=== PATIENT | female | born 1945 | race Caucasian/White ===

== ENCOUNTER 2016-11-07 19:45 | Emergency (ER) | payer OTHER ==
[2016-11-07 19:51] VITALS: BMI 29.6
[2016-11-07] MEDS ORDERED: ACETAMINOPHEN 325 MG TABLET (FP) PO ONE (20:13)
--- NOTE | 2016-11-07 21:05 | PDOC ---
History of Present Illness - General History Source: Patient, Family () Exam Limitations: No Limitations - History of Present Illness Initial Comments: 11/07/16 21:42 The patient is a 71 year old female presenting with her , with a significant past medical history of HTN and thyroid disease, who presents to the emergency department with cough, fever, chills and runny nose since last night. She reports that her cough is dry in nature. She also reports that her fever is subjective. She notes that her daughter has also been sick. She denies any recent travel. She states that she has been taking cough syrup (Dyslem) but denies taking anything else for her symptoms. She denies receiving the flu shot this year. The patient denies chest pain, shortness of breath, headache and dizziness. Denies nausea, vomit, diarrhea and constipation. Denies dysuria, frequency, urgency and hematuria. Allergies: None Past surgical history: Cholecystectomy Social history: No alcohol, tobacco or drug use reported <Jeremias Manning - Last Filed: 11/07/16 21:46> <Kim Anderson - Last Filed: 11/08/16 00:56> - General Chief Complaint: Respiratory Stated Complaint: CHILLS, COUGH Time Seen by Provider: 11/07/16 20:04 Past History <Jeremias Manning - Last Filed: 11/07/16 21:46> - Past Medical History HTN: Yes Suicide Attempt (Hx): No Thyroid Disease: Yes - Surgical History Cholecystectomy: Yes - Immunization History Immunization Up to Date: Yes - Psycho/Social/Smoking Cessation Hx Anxiety: No Suicidal Ideation: No Smoking Status: No Smoking History: Never smoked Number of Cigarettes Smoked Daily: 0 Hx Alcohol Use: No Drug/Substance Use Hx: No Substance Use Type: None <Kim Anderson - Last Filed: 11/08/16 00:56> - Past Medical History Allergies/Adverse Reactions: Allergies Allergy/AdvReac Type Severity Reaction Status Date / Time No Known Allergies Allergy Verified 11/07/16 19:48 Home Medications: Ambulatory Orders Levothyroxine [Synthroid] 75 mcg PO DAILY 10/24/11 Indomethacin 50 mg PO TID 04/24/15 Metoprolol Tartrate 25 mg PO DAILY 04/24/15 Ibuprofen [Motrin -] 800 mg PO TID #30 tablet 04/25/15 Methocarbamol [Robaxin -] 1,000 mg PO TID #21 tablet 04/25/15 Hydrocodone Bit/Homatrop Me-Br [Hydrocodone-Homatropine Syrup] 5 ml PO QID PRN # 60 ml MDD 20 ml 11/07/16 Review of Systems - Review of Systems Able to Perform ROS?: Yes Comments:: 11/07/16 21:43 GENERAL/CONSTITUTIONAL: +chills and fever. No weakness. HEAD, EYES, EARS, NOSE AND THROAT: +Runny nose. No change in vision. No ear pain or discharge. No sore throat. CARDIOVASCULAR: No chest pain or shortness of breath RESPIRATORY: +Cough. No wheezing, or hemoptysis. GASTROINTESTINAL: No nausea, vomiting, diarrhea or constipation. GENITOURINARY: No dysuria, frequency, or change in urination. MUSCULOSKELETAL: No joint or muscle swelling or pain. No neck or back pain. SKIN: No rash NEUROLOGIC: No headache, vertigo, loss of consciousness, or change in strength/ sensation. ENDOCRINE: No increased thirst. No abnormal weight change HEMATOLOGIC/LYMPHATIC: No anemia, easy bleeding, or history of blood clots. ALLERGIC/IMMUNOLOGIC: No hives or skin allergy. <Jeremias Manning - Last Filed: 11/07/16 21:46> *Physical Exam - Vital Signs Last Vital Signs Temp Pulse Resp BP Pulse Ox 102 F H 93 H 18 129/89 100 11/07/16 19:45 11/07/16 19:45 11/07/16 19:45 11/07/16 19:45 11/07/16 19:45 - Physical Exam Comments: 11/07/16 21:43 GENERAL: Awake, alert, and fully oriented, in no acute distress HEAD: No signs of trauma, normocephalic, atraumatic EYES: PERRLA, EOMI, sclera anicteric, Slightly erythematous conjunctiva ENT: Auricles normal inspection, hearing grossly normal, nares patent, Oropharynx slightly erythematous without exudates. Moist mucosa NECK: Normal ROM, supple, no lymphadenopathy, JVD, or masses LUNGS: No distress, speaks full sentences, clear to auscultation bilaterally HEART: Regular rate and rhythm, normal S1 and S2, no murmurs, rubs or gallops, peripheral pulses normal and equal bilaterally. ABDOMEN: Soft, nontender, normoactive bowel sounds. No guarding, no rebound. No masses EXTREMITIES: Normal inspection, Normal range of motion, no edema. No clubbing or cyanosis. NEUROLOGICAL: Cranial nerves II through XII grossly intact. Normal speech, normal gait, no focal sensorimotor deficits SKIN: Warm, Dry, normal turgor, no rashes or lesions noted. <Jeremias Manning - Last Filed: 11/07/16 21:46> - Vital Signs Last Vital Signs Temp Pulse Resp BP Pulse Ox 102 F H 93 H 18 129/89 100 11/07/16 19:45 11/07/16 19:45 11/07/16 19:45 11/07/16 19:45 11/07/16 19:45 <Kim Anderson - Last Filed: 11/08/16 00:56> ED Treatment Course - Medications Given in the ED: ED Medications Discontinued Medications Generic Name Dose Route Start Last Admin Trade Name Freq PRN Reason Stop Dose Admin Acetaminophen 650 mg 11/07/16 20:13 11/07/16 20:10 Tylenol - PO 11/07/16 20:14 650 mg NOW ONE Administration <Jeremias Manning - Last Filed: 11/07/16 21:46> - Medications Given in the ED: ED Medications Discontinued Medications Generic Name Dose Route Start Last Admin Trade Name Freq PRN Reason Stop Dose Admin Acetaminophen 650 mg 11/07/16 20:13 11/07/16 20:10 Tylenol - PO 11/07/16 20:14 650 mg NOW ONE Administration <Kim Anderson - Last Filed: 11/08/16 00:56> Progress Note - Progress Note Progress Note: Documentation has been prepared under my direction and personally reviewed by me in its entirety. I attest that this documented accurately reflects all work, treatment, procedures and medical decision making performed by me. <Kim Anderson - Last Filed: 11/08/16 00:56> Medical Decision Making - Medical Decision Making As noted above, this 71-year-old woman with a history hypertension/ hypothyroidism presents with a few day history of nonproductive cough/sore throat/nasal congestion. No myalgias/malaise/gastrointestinal symptoms. Patient's daughter had similar symptoms 2 days ago. Patient has no history of asthma/COPD. She is a nonsmoker. She did not have influenza immunization this year. Exam as noted No evidence of acute bacterial infection at this time; clinical presentation most consistent with acute viral bronchitis. Patient will be advised to rest and drink plenty of fluids; she should make sure that the atmosphere within her home is well hydrated. Since she has been having paroxysmal coughing at night, prescription for hydrocodone/homatropine suspension, 5 mL up to 3 times a day as needed for severe cough will be sent to her pharmacy. She should return to the ER if she has worsening cough/wheezing/ shortness of breath/high fever. <Kim Anderson - Last Filed: 11/08/16 00:56> *DC/Admit/Observation/Transfer - Attestations Scribe Attestion: 11/07/16 21:44 Documentation prepared by Jeremias Manning, acting as medical oncology physician for Kim Anderson MD <Jeremias Manning - Last Filed: 11/07/16 21:46> <Kim Anderson - Last Filed: 11/08/16 00:56> Diagnosis at time of Disposition: Acute bronchitis Qualifiers: Bronchitis organism: unspecified organism Qualified Code(s): J20.9 - Acute bronchitis, unspecified - Discharge Dispostion Disposition: HOME Condition at time of disposition: Stable - Prescriptions Prescriptions: Hydrocodone Bit/Homatrop Me-Br [Hydrocodone-Homatropine Syrup] 5 ml PO QID PRN # 60 ml MDD 20 ml PRN Reason: Cough - Referrals Referrals: Dwayne Avelar [Primary Care Provider] - - Patient Instructions Printed Discharge Instructions: DI for Acute Bronchitis Additional Instructions: rest, drink plenty of fluids motrin/tylenol as needed for fever use vaporizer in room Delsym for mild cough Hydrocodone/homatropine 1 teaspoon up to 4 Xday for severe cough return or see your doctor if you have severe cough/shortness of breath/high fever
[2016-11-07] MEDS ORDERED: DEXTROMETHORPHAN/PROMETHAZINE 15 MG/6.25 MG/5 ML SYRUP PO ONE (21:46)
[2016-11-07 22:09] VITALS: BP 135/58; PULSE 83; TEMP 99.5
== END 2016-11-07 22:16 | disposition home or self-care (01) ==
LOC: FER 19:45
DX: J20.9 Acute bronchitis, unspecified (principal); I10 Essential (primary) hypertension; E03.9 Hypothyroidism, unspecified
CPT/HCPCS: 99282-25

== ENCOUNTER 2018-08-09 21:04 | Emergency (ER) | payer OTHER ==
--- NOTE | 2018-08-09 21:07 | PDOC ---
History of Present Illness - General Chief Complaint: Chest Pain Stated Complaint: WEAKNESS/PAIN Time Seen by Provider: 08/09/18 21:06 - History of Present Illness Initial Comments: 08/09/18 21:52 This 72-year-old woman with a history of HTN, mild HLD (diet controlled), hypothyroidism presents with a one-day history of intermittent chest pain. Patient states that she first felt left-sided chest pain last night , while lying on her left side. Patient rolled onto her right side with some relief. Today, she had recurrence of chest pain this afternoon, now mid substernal. Patient notes that this discomfort began after eating a large dinner and having an emotional discussion with her family. She notes mild nausea intermittent the last few hours. No shortness of breath/diaphoresis/radiation of pain. She denies trauma, however states that she has been vacuuming frequently in the last few days. No previous history of chest pain; no significant pain or shortness of breath with exertion. Patient states that she has been feeling fatigued/week all day today. No recent acute febrile illness Patient has recent right knee pain for which she received intra-articular steroid; no history of edema or other pain in the lower extremities Risk factors: Positive for hypertension/family history(paternal) Nonsmoker Medications as noted below Past History - Past Medical History Allergies/Adverse Reactions: Allergies Allergy/AdvReac Type Severity Reaction Status Date / Time No Known Allergies Allergy Verified 11/07/16 19:48 Home Medications: Ambulatory Orders Levothyroxine [Synthroid] 75 mcg PO DAILY 10/24/11 Metoprolol Tartrate 25 mg PO DAILY 04/24/15 Lisinopril 5 mg PO DAILY 08/09/18 HTN: Yes Thyroid Disease: Yes - Surgical History Cholecystectomy: Yes - Immunization History Immunization Up to Date: Yes - Suicide/Smoking/Psychosocial Hx Smoking Status: No Smoking History: Never smoked Number of Cigarettes Smoked Daily: 0 Hx Alcohol Use: No Drug/Substance Use Hx: No Substance Use Type: None Review of Systems - Review of Systems Able to Perform ROS?: Yes Comments:: 12 point review of systems is negative except for what is noted in the history of present illness *Physical Exam - Vital Signs Last Vital Signs Temp Pulse Resp BP Pulse Ox 98.8 F 101 H 16 151/77 98 08/09/18 21:10 08/09/18 21:10 08/09/18 21:10 08/09/18 21:10 08/09/18 21:10 - Physical Exam Comments: GENERAL: Adult female, alert and oriented 3, in no acute distress HEAD: Normal with no signs of trauma. EYES: PERRLA, EOMI, sclera anicteric, conjunctiva clear. ENT: Ears normal, nares patent, oropharynx clear without exudates. Moist mucous membranes. NECK: Normal range of motion, supple without lymphadenopathy, JVD, or masses. LUNGS: Breath sounds equal, clear to auscultation bilaterally. No wheezes, and no crackles. CHEST WALL: Mild tenderness to palpation right parasternal area ribs 2 through 4; no crepitus or step offs palpated HEART:Regular rate and rhythm, normal S1 and S2 without murmur, rub or gallop. ABDOMEN:.normal bowel sounds No guarding,tenderness or rebound.No masses No distention. EXTREMITIES: Normal range of motion, no edema. No clubbing or cyanosis. No erythema, or tenderness. NEUROLOGICAL: Cranial nerves II through XII grossly intact. Normal speech. No focal neurological deficits. MUSCULOSKELETAL: Back non-tender to palpation, no CVA tenderness SKIN: Warm, Dry, normal turgor, no rashes or lesions noted. 12-lead electrocardiogram performed and interpreted by me: Normal sinus rhythm at 100 bpm; poor R-wave progression. No acute ST or T-wave abnormalities evident. No evidence of acute cardiac arrhythmia. Portable chest x-ray interpreted by Imaging production assembly supervisor: Minimal left basilar atelectasis but otherwise no evidence of abnormality Heart Score/ECG Review - History History: Slightly suspicious - Electrocardiogram EKG: Normal - Age Age: >/= 65 - Risk Factors Risk Factors Heart Score: Yes Hx Hypertension, Yes Positive family hx of cardiac disease Based on the list above the patient has:: 1-2 risk factors - Troponin Troponin: </= normal limit - Score Heart Score - Total: 3 ED Treatment Course - LABORATORY CBC & Chemistry Diagram: 08/09/18 21:30 08/09/18 21:31 - ADDITIONAL ORDERS Additional order review: Laboratory Results 08/10/18 08/09/18 08/09/18 00:05 21:31 21:31 PT with INR 11.8 INR 1.06 Sodium Potassium Chloride Carbon Dioxide Anion Gap BUN Creatinine Creat Clearance w eGFR Random Glucose Calcium Total Bilirubin AST ALT Alkaline Phosphatase Creatine Kinase Creatine Kinase Index CK-MB (CK-2) Troponin I < 0.02 < 0.03 Total Protein Albumin Urine Color Urine Appearance Urine pH Ur Specific [place] Urine Protein Urine Glucose (UA) Urine Ketones Urine Blood Urine Nitrite Urine Bilirubin Urine Urobilinogen Ur Leukocyte Esterase Urine RBC Urine WBC Ur Epithelial Cells 08/09/18 08/09/18 21:31 21:31 PT with INR INR Sodium 136 Potassium 4.0 Chloride 105 Carbon Dioxide 26 Anion Gap 5 L BUN 23 H Creatinine 0.8 Creat Clearance w eGFR > 60 Random Glucose 144 H Calcium 9.0 Total Bilirubin 0.3 AST 26 ALT 21 Alkaline Phosphatase 54 Creatine Kinase 313 H Creatine Kinase Index 1.6 CK-MB (CK-2) 5.1 H Troponin I Total Protein 6.8 Albumin 3.8 Urine Color Dor[place] Urine Appearance Clear Urine pH 5.5 Ur Specific [place] 1.025 Urine Protein Negative Urine Glucose (UA) Negative Urine Ketones Trace Urine Blood 2+ H Urine Nitrite Negative Urine Bilirubin Negative Urine Urobilinogen 0.2 Ur Leukocyte Esterase Negative Urine RBC 10-20 Urine WBC 0-2 Ur Epithelial Cells Few 08/09/18 21:30 RBC 4.10 MCV 96.7 H MCHC 33.5 RDW 12.8 MPV 8.2 Neutrophils % 79.3 Lymphocytes % 10.3 Monocytes % 8.9 Eosinophils % 0.8 Basophils % 0.7 - RADIOLOGY Radiology Studies Ordered: Category Date Time Status CHEST X-RAY PORTABLE* [RAD] Stat Radiology 08/09/18 21:31 Taken - Medications Given in the ED: ED Medications Discontinued Medications Generic Name Dose Route Start Last Admin Trade Name Freq PRN Reason Stop Dose Admin Famotidine/Sodium Chloride 20 mg in 50 mls @ 100 mls/hr 08/09/18 22:04 22:08 Pepcid 20 Mg Premixed Ivpb - IVPB 08/09/18 22:33 100 mls/hr ONCE ONE Administration Medical Decision Making - Medical Decision Making Laboratory evaluation including CBC/chemistry profile/cardiac profile reveals evidence of mild prerenal azotemia with BUN of 23 with a creatinine 0.8. Total CK slightly elevated at 313 but troponin is not elevated. Ua reveals microscopic hematuria without WBC/Bacteria. Pt has no symptoms of UTI. She states that she chronically has asymptomatic microcopic hematuria, with negative workup by urologist for acute issues except prolapsed bladder(She is s/p hysterectomy/BSO). Will send urine c&s to fully R/O UTI In retrospect, patient remembers vacuuming aggressively a few days ago and carried very heavy luggage over the last 24 hours. Since patient has a few risk factors for coronary artery disease, second troponin was drawn approximately 3 hours after the first. Second troponin is not elevated. Clinical presentation most consistent with atypical chest pain, likely muscle strain Patient will be discharged with instructions to continue her medications as prescribed; she should drink plenty of water and avoid strenuous activity over the next several days. She will follow-up with her general medical doctor within the next 5 days and return to the ER if she has persistent severe symptoms *DC/Admit/Observation/Transfer Diagnosis at time of Disposition: Atypical chest pain - Discharge Dispostion Disposition: HOME Condition at time of disposition: Stable - Referrals Referrals: Dwayne Avelar [Primary Care Provider] - - Patient Instructions Printed Discharge Instructions: DI for Atypical Chest Pain Additional Instructions: Rest; avoid strenuous activity involving upper body Drink plenty of water Follow-up with your general doctor within the next 5 days Return to ER if you have persistent chest pain or experience nausea/cold sweat/ shortness of breath - Post Discharge Activity
[2018-08-09 21:20] VITALS: BP 151/77; PULSE 101; TEMP 98.8; BMI 29.8
[2018-08-09 21:47] LABS: PH,URINE 5.5 (4.5-8); URINE APPEARANCE Clear; URINE BILIRUBIN Negative (NEGATIVE); URINE COLOR Amber; URINE GLUCOSE (UA) Negative (NEGATIVE); URINE KETONE Trace (NEGATIVE); URINE LEUK ESTERASE Negative (NEGATIVE); URINE NITRITE Negative (NEGATIVE); URINE PROTEIN Negative (NEGATIVE); URINE UROBILINOGEN 0.2 (0.2-1.0)
[2018-08-09 21:47] LABS: BASO % 0.7 % (0-2.0); HEMOGLOBIN 13.3 GM/dl (10.7-15.3)
[2018-08-09 21:51] LABS: EOS % 0.8 % (0-4.5); HEMATOCRIT 39.6 % (32.4-45.2); LYMPH % 10.3 % (8-40); MCH 32.4 pg (25.7-33.7); MCHC 33.5 g/dl (32.0-36.0); MEAN CELL VOLUME 96.7 fl (80-96); MEAN PLT VOLUME 8.2 fl (7.5-11.1); MONO % 8.9 % (3.8-10.2); NEUT % 79.3 % (42.8-82.8); PLATELET COUNT 212 K/MM3 (134-434); RDW 12.8 % (11.6-15.6); WHITE BLOOD COUNT 9.1 K/mm3 (4.0-10.8)
[2018-08-09 21:52] LABS: EPI CELLS FEW /HPF; URINE WBC 0-2 (0-5)
[2018-08-09 21:53] LABS: INR 1.06 (0.82-1.09); PROTHROMBIN TIME (PATIENT) 11.8 SEC (10.2-13.0)
[2018-08-09 21:58] LABS: ALBUMIN 3.8 g/dl (3.5-5.0); ALK PHOS 54 U/L (32-92); ANION GAP 5 MMOL/L (8-16); BILIRUBIN,TOTAL 0.3 mg/dl (0.2-1.0); BLOOD UREA NITROGEN 23 mg/dl (7-18); CHLORIDE 105 mmol/L (98-107); CO2 26 mmol/L (22-28); CREATININE 0.8 mg/dl (0.6-1.3); GLUCOSE,RANDOM 144 mg/dl (74-106); SGOT/AST 26 U/L (10-42); SGPT/ALT 21 U/L (10-40); SODIUM 136 mmol/L (136-145); TOT PROT 6.8 g/dl (6.4-8.3)
[2018-08-09] MEDS ORDERED: FAMOTIDINE 20 MG/50 ML IVPB 20 MG/50 ML MG IVPB ONE ×2 (22:04→22:07)
--- NOTE | 2018-08-10 09:49 | EKG ---
Test Reason : Blood Pressure : / mmHG Vent. Rate : 149 BPM Atrial Rate : 149 BPM P-R Int : 196 ms QRS Dur : 074 ms QT Int : 324 ms P-R-T Axes : 049 014 073 degrees QTc Int : 510 ms SINUS TACHYCARDIA LOW VOLTAGE QRS CANNOT RULE OUT INFERIOR INFARCT , AGE UNDETERMINED NO PREVIOUS ECGS AVAILABLE Confirmed by TERRENCE SPIVEY, ROSA ([id number]) on 08/10/2018 9:48:36 AM Referred By: DR ARMANDO Confirmed By:ROSA OCAMPO MD
== END 2018-08-10 01:13 | disposition home or self-care (01) ==
LOC: FER 21:04
PROC: 3E033GC Introduction of Other Therapeutic Substance into Peripheral Vein, Percutaneous Approach (ICD-10-PCS; principal; 2018-08-09)
DX: R07.89 Other chest pain (principal)
CPT/HCPCS: 36415; 71045-TC-FY; 80053; 81003; 81015; 82550; 82553; 84484; 85025; 85610; 87086; 93005; 99283-25

== ENCOUNTER 2020-04-23 15:27 | Emergency (ER) | payer OTHER ==
--- NOTE | 2020-04-23 15:39 | PDOC ---
History of Present Illness - General Chief Complaint: Urinary Problem Stated Complaint: UTI, HEMORRHOIDS Time Seen by Provider: 04/23/20 15:29 History Source: Patient Exam Limitations: No Limitations - History of Present Illness Initial Comments: Naina is a 74 yo F w a hx of HTN, HLD and hypothyroidism who presents to the [facility] stating she believes she has a bladder infection. She states for the past 2 weeks she has been experiencing a pressure sensation in her lower abdomen which radiates to her groin. She also reports that this is exactly how her last UTI felt last year. She endorses urinary frequency, urgency, hematuria and hesitancy but denies dysuria, back pain, fevers, or chills. She also states she has been experiencing hemorrhoids which she has been using preparation H for with minimal relief. She requests a cream that she can place on the hemorrhoids. Denies fevers, chills, nausea, vomiting PCP: Dwayne Vila - she retired patient requests new referral PSH: Cholecystectomy Social Hx: Denies smoking, drinking or other substance abuse Allergies: NKA, NKDA Past History - Medical History Allergies/Adverse Reactions: Allergies Allergy/AdvReac Type Severity Reaction Status Date / Time No Known Allergies Allergy Verified 11/07/16 19:48 Home Medications: Ambulatory Orders Levothyroxine [Synthroid] 75 mcg PO DAILY 10/24/11 Metoprolol Tartrate 25 mg PO DAILY 04/24/15 Lisinopril 5 mg PO DAILY 08/09/18 Cephalexin [Keflex] 500 mg PO TID 3 Days #9 capsule 04/23/20 Lidocaine 4% Topical [Xylocaine 4% Topical -] 1 applic MM DAILY #1 btl 04/23/20 Lidocaine/Phenyl/Glycer/Petrol [Preparation H Rapid-Lido Cream] 28 gm TP PRN 5 Days #1 cream..g. 04/23/20 Phenyleph/Pramoxin/Glycr/W.pet [Preparation H Cream] 26 gm RC PRN 10 Days #1 cream..g. 04/23/20 COPD: No HTN: Yes Thyroid Disease: Yes - Surgical History Cholecystectomy: Yes - Immunization History Immunization Up to Date: Yes - Psycho-Social/Smoking History Smoking Status: No Smoking History: Never smoked Number of Cigarettes Smoked Daily: 0 Review of Systems - Review of Systems Able to Perform ROS?: Yes Comments:: CONSTITUTIONAL: Absent: fever, no chills, no fatigue EYES: Absent: visual changes ENT: Absent: ear pain, no sore throat CARDIOVASCULAR: Absent: chest pain, no palpitations RESPIRATORY: Absent: cough, no SOB GI: Present Suprapubic pressure Absent: no nausea, no vomiting, no constipation, no diarrhea GENITOURINARY: Present: urgency, frequency, hematuria Absent: dysuria MUSKULOSKELETAL: Absent: back pain, no arthralgia, no myalgia SKIN: Absent: rash NEURO: Absent: headache *Physical Exam - Physical Exam PELVIC EXAM: The bladder is prolapsed and easily reducible into the vaginal canal but does not stay in the canal. RECTAL: There is one small left lateral external hemorrhoid which is not thrombosed GENERAL: Well-appearing, well-nourished. No apparent distress. HEENT: Normocephalic, atraumatic. PERRL, EOM intact. CARDIOVASCULAR: Normal S1, S2. Regular rate and rhythm. PULMONARY: No evidence of respiratory distress. Lungs clear to auscultation bilaterally. No wheezing, rales or rhonchi. ABDOMEN: There is no suprapubic TTP. Soft, non-distended, non-tender. EXTREMITIES: Normal ROM in all four extremities. No gross deformities. SKIN: Warm, dry. No rash NEUROLOGICAL: No focal neurological deficits. Medical Decision Making - Medical Decision Making Naina is a 74 yo F w a hx of HTN, HLD and hypothyroidism who presents to the [facility] stating she believes she has a bladder infection. She states for the past 2 weeks she has been experiencing a pressure sensation in her lower abdomen which radiates to her groin. She also reports that this is exactly how her last UTI felt last year. She endorses urinary frequency, urgency, hematuria and hesitancy but denies dysuria, back pain, fevers, or chills. She also states she has been experiencing hemorrhoids which she has been using preparation H for with minimal relief. She requests a cream that she can place on the hemorrhoids. Vital Signs Temp Pulse Resp BP Pulse Ox 98.4 F 83 15 146/87 96 04/23/20 15:29 04/23/20 15:29 04/23/20 15:29 04/23/20 15:04/23/20 15:29 DDx IBNLT: UTI, hemorrhoids, hemorrhagic cystitis Plan: ua/uc, re-assess MDM: Pelvic exam shows a prolapsed bladder - patient is aware she needs a surgical operation to fix this. She states she will call up her surgeon to have this scheduled. The patient appears clinically sober, has no evidence of clinical intoxication, is A&O x4, has no sustained nystagmus, and appears to be capable and have capacity to make reasonable decisions. The patient states they are currently in the emergency department, knows who the president is, states the correct time, correct day, and correct month. The patient is ambulatory in ER and has walked around the nursing station multiple times with a straight and steady gait, and is not ataxic. Tolerating PO well, ate a sandwich and drank juice. Denies having any SI or HI. Patient states will not be driving home. I discussed the physical exam findings, ancillary test results and final diagnoses with the patient. I answered all of the patient's questions. The braydon gacría was satisfied with the care received and felt comfortable with the discharge plan and treatment plan. The patient will call their primary care physician within 24 hours to arrange follow-up and will return to the Emergency Department with any new, persistent or worsening symptoms. 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 The [place] of the Department of Health and Human Services has declared, pursuant to the Public Health Service Act 319F-3 (42 U.S.C. 247d-6d), that a covered persons activities related to medical countermeasures against COVID-19 will be immune from liability under Federal and State law. Discharge - Discharge Information Problems reviewed: Yes Clinical Impression/Diagnosis: Prolapsed bladder UTI (urinary tract infection) Qualifiers: Urinary tract infection type: acute cystitis Hematuria presence: without hematuria Qualified Code(s): N30.00 - Acute cystitis without hematuria Condition: Good Disposition: HOME - Admission No - Additional Discharge Information Prescriptions: Cephalexin [Keflex] 500 mg PO TID 3 Days #9 capsule Phenyleph/Pramoxin/Glycr/W.pet [Preparation H Cream] 26 gm RC PRN 10 Days #1 cream..g. Lidocaine/Phenyl/Glycer/Petrol [Preparation H Rapid-Lido Cream] 28 gm TP PRN 5 Days #1 cream..g. Lidocaine 4% Topical [Xylocaine 4% Topical -] 1 applic MM DAILY #1 btl - Follow up/Referral Referrals: [facility] [Provider Group] - Patient Discharge Instructions Patient Printed Discharge Instructions: Cystocele/Rectocele, Urinary Tract Infection, Urinary Incontinence -- Female, DI for Cystocele/Rectocele Additional Instructions: You came into the ER with lower abdominal pressure. We are giving you antibiotics for the next 3 days. We have also sent hemorrhoid creams to your pharmacy. Please make sure to go and pick it up. It is very important for you to follow up with a voice network administrator to schedule a surgery for your prolapsed bladder. You must call up a voice network administrator in the next 3 to 5 days. You must return to the Emergency Department with any new complaints, if your symptoms persist and do not improve or if you develop any other new or worsening concerns. You can take over the counter Tylenol or Advil as needed for pain. Take as directed on the package insert. Do not exceed the recommended dosage. As discussed, please call to follow up with the Primary Care physician we are referring you to in 1-2 days to discuss what happened to you in the emergency room, and make sure you are being looked after and taken care of. Your emergency room visit is not complete without this follow up appointment. Please read the attached handouts for further information about your ER visit and what you should do moving forward. Thank you for coming to the [facility]. We hope you feel better soon! Print Language: ESTONIAN - Post Discharge Activity
[2020-04-23 16:02] VITALS: BP 146/87; PULSE 83; TEMP 98.4; BMI 29.6
--- NOTE | 2020-04-23 16:34 | PDOC ---
Attending Attestation - Resident Resident Name: AriellerolandRadhikaChoco - ED Attending Attestation I have performed the following: I have examined & evaluated the patient, The case was reviewed & discussed with the resident, I agree w/resident's findings & plan, Exceptions are as noted - HPI HPI: 04/23/20 16:34 74 yo F w a hx of HTN, HLD and hypothyroidism, prolapsed bladder, who presents to the [facility] stating she believes she has a bladder infection - Physicial Exam PE: 04/23/20 17:19 Vitals: Triage Vital signs reviewed symptoms General Appearance: No acute distress, well nourished well developed, Head: Atraumatic, Cardiac: Regular rate and rhythym, no murmurs, no rubs, no gallops, Lungs: Clear to auscultation bilateral, good air movement bilaterally, Abdomen: Soft, non distended, normal bowel sounds, non tender to palpation Genitourinary:Prolapsed uterus Extremities: Full range of motion to all extremities, no cyanosis, clubbing, or edema Skin: Warm and dry, no rashes or lesions, no rash, no petechiae Psych: Normal mood, normal affect - Medical Decision Making 04/23/20 17:21 Patient with signs and symptoms of UTI urinalysis borderline given symptoms and age we will treat will have patient follow-up with her urologist for prolapsed bladder. Findings, need for follow-up and strict return instructions discussed with patient. Discharge - Discharge Information Problems reviewed: Yes Clinical Impression/Diagnosis: Prolapsed bladder UTI (urinary tract infection) Qualifiers: Urinary tract infection type: acute cystitis Hematuria presence: without hematuria Qualified Code(s): N30.00 - Acute cystitis without hematuria Condition: Good Disposition: HOME - Additional Discharge Information Prescriptions: Cephalexin [Keflex] 500 mg PO TID 3 Days #9 capsule Phenyleph/Pramoxin/Glycr/W.pet [Preparation H Cream] 26 gm RC PRN 10 Days #1 cream..g. Lidocaine/Phenyl/Glycer/Petrol [Preparation H Rapid-Lido Cream] 28 gm TP PRN 5 Days #1 cream..g. Lidocaine 4% Topical [Xylocaine 4% Topical -] 1 applic MM DAILY #1 btl - Follow up/Referral Referrals: [facility] [Provider Group] - Patient Discharge Instructions Patient Printed Discharge Instructions: Cystocele/Rectocele, Urinary Tract Infection, Urinary Incontinence -- Female, DI for Cystocele/Rectocele Additional Instructions: You came into the ER with lower abdominal pressure. We are giving you antibiotics for the next 3 days. We have also sent hemorrhoid creams to your pharmacy. Please make sure to go and pick it up. It is very important for you to follow up with a acting instructor to schedule a surgery for your prolapsed bladder. You must call up a acting instructor in the next 3 to 5 days. You must return to the Emergency Department with any new complaints, if your symptoms persist and do not improve or if you develop any other new or worsening concerns. You can take over the counter Tylenol or Advil as needed for pain. Take as directed on the package insert. Do not exceed the recommended dosage. As discussed, please call to follow up with the Primary Care physician we are referring you to in 1-2 days to discuss what happened to you in the emergency room, and make sure you are being looked after and taken care of. Your emergency room visit is not complete without this follow up appointment. Please read the attached handouts for further information about your ER visit an d what you should do moving forward. Thank you for coming to the [facility]. We hope you feel better soon! Print Language: AMHARIC - Post Discharge Activity
[2020-04-23 17:03] LABS: EPITHELIAL CELLS FEW /hpf
== END 2020-04-23 17:37 | disposition home or self-care (01) ==
LOC: FER 15:27
DX: N81.2 Incomplete uterovaginal prolapse (principal); N30.00 Acute cystitis without hematuria
CPT/HCPCS: 81003; 81015; 87086; 99283-25